=== PATIENT | male | born 1970 | race American Indian/Alaskan Native ===

== ENCOUNTER 2017-03-19 23:19 | Emergency (ER) | payer BC ==
[2017-03-20 00:09] LABS: Basophils % (Auto) 0.3 % (0.0-1.8); Eosinophils % (Auto) 0.4 % (0.0-4.3); Hematocrit 39.4 % (35.5-45.6); Hemoglobin 12.9 gm/dl (11.8-15.2); Mean Corpuscular HGB Conc 33 % (32-34); Mean Corpuscular Hemoglobin 30 pg (28-32); Mean Corpuscular Volume 92 fl (84-94); Platelet Count 213 K/mm3 (140-440); Red Cell Distribution Width 13.2 % (13.2-15.2); White Blood Count 14.9 K/mm3 (4.5-11.0)
[2017-03-20 00:14] LABS: Bilirubin,Urine NEG (Negative); Blood,Urine NEG (Negative); Ketones,Urine NEG (Negative); Leukocyte Esterase,Urine NEG (Negative); Mucus,Urine FEW /HPF; Nitrite,Urine NEG (Negative); Protein,Urine <15 mg/dL mg/dL (Negative); RBC,Urine < 1.0 /HPF (0.0-6.0); Urobilinogen,Urine < 2.0 mg/dL (<2.0); WBC,Urine < 1.0 /HPF (0.0-6.0)
[2017-03-20 00:32] LABS: Alanine Aminotransferase 26 units/L (7-56); Albumin 3.8 g/dL (3.9-5); Albumin/Globulin Ratio 1.2 %; Alkaline Phosphatase 66 units/L (35-129); Anion Gap 15 mmol/L; BUN/Creatinine Ratio 12.72; Blood Urea Nitrogen 14 mg/dL (9-20); Calcium 8.6 mg/dL (8.4-10.2); Carbon Dioxide 25 mmol/L (22-30); Glucose 110 mg/dL (75-100); Lipase 16 units/L (13-60); Sodium 137 mmol/L (137-145); Total Protein 7.1 g/dL (6.3-8.2)
[2017-03-20 01:55] VITALS: BP 119/71
[2017-03-20] MEDS ORDERED: LEVAQUIN PO ONE (04:40)
--- NOTE | 2017-03-20 04:40 | Emergency Department Report ---
ED N/V/D HPI - General Chief complaint: Nausea/Vomiting/Diarrhea Stated complaint: STOMACH PAIN Source: patient Mode of arrival: Ambulatory Limitations: No Limitations - History of Present Illness Initial comments: 46 yo male with no significant past medical history presents complaining of intermittent diarrhea 2 weeks. Patient states he has a moderate to severe lower abdominal cramping followed by a bowel movement with relief in pain. Patient having on average 10 bowel movements a day. Patient denies vomiting, fever, sick contacts, or recent travel. Patient using Imodium with some improvement. - Related Data Previous Rx's Medication Instructions Recorded Last Taken Type Ciprofloxacin HCl [Ciprofloxacin 500 mg PO Q12H #10 tab 03/20/17 Unknown Rx TAB] Allergies Allergy/AdvReac Type Severity Reaction Status Date / Time No Known Allergies Allergy Verified 03/19/17 23:39 ED Review of Systems ROS: Stated complaint: STOMACH PAIN Other details as noted in HPI Comment: All other systems reviewed and negative Other: Constitutional: No fevers chills Eyes: No eye pain visual changes ENT: No ear pain or throat pain Neck: Denies pain Respiratory: Denies cough wheezing shortness of breath Cardiovascular: Denies chest pain, palpitations, syncope GI: As per HPI : Denies dysuria Musculoskeletal: Denies back pain Skin: Denies rash, lesions, erythema Neurologic: Denies headache, numbness, weakness Psychiatric: Denies suicidal ideation, hallucinations ED Past Medical Hx - Past Medical History Previous Medical History?: No - Surgical History Past Surgical History?: No - Social History Smoking Status: Never Smoker Substance Use Type: None - Medications Home Medications: Home Medications Medication Instructions Recorded Confirmed Last Taken Type Ciprofloxacin HCl [Ciprofloxacin 500 mg PO Q12H #10 tab 03/20/17 Unknown Rx TAB] ED Physical Exam - General Limitations: No Limitations - Other Other exam information: General: No limitations, patient is alert in no acute distress Head exam: Atraumatic, normocephalic Eyes exam: Normal appearance ENT: Moist mucous membrane, normal oropharynx Neck exam: Normal inspection, full range of motion Respiratory exam: Clear to auscultation bilateral, no wheezes, rales, crackles Cardiovascular: Normal rate and rhythm, normal heart sounds Abdomen: Soft, nondistended, and nontender, with normal bowel sounds, no rebound, or guarding Extremity: Full range of motion normal inspection no deformity Back: Normal Inspection, full range of motion, no tenderness Neurologic: Alert, oriented x3, cranial nerves intact, no motor or sensory deficit Psychiatric: normal affect, normal mood Skin: Warm, dry, intact ED Course Vital Signs 03/19/17 03/20/17 23:34 01:54 Temperature 98.3 F Pulse Rate 95 H 74 Respiratory 18 16 Rate Blood Pressure 123/73 119/71 [Right] O2 Sat by Pulse 98 98 Oximetry - Reevaluation(s) Reevaluation #1: 03/20/17 04:38 Patient pain free in the ED states he only has pain prior to bowel movement ED Medical Decision Making - Lab Data Result diagrams: 03/19/17 23:57 03/19/17 23:57 Lab Results 03/19/17 03/19/17 03/19/17 Range/Units 23:45 23:57 23:57 WBC 14.9 H (4.5-11.0) K/mm3 RBC 4.30 (3.65-5.03) M/mm3 Hgb 12.9 (11.8-15.2) gm/dl Hct 39.4 (35.5-45.6) % MCV 92 (84-94) fl MCH 30 (28-32) pg MCHC 33 (32-34) % RDW 13.2 (13.2-15.2) % Plt Count 213 (140-440) K/mm3 Lymph % (Auto) 11.5 L (13.4-35.0) % [place] % (Auto) 10.5 H (0.0-7.3) % Eos % (Auto) 0.4 (0.0-4.3) % Baso % (Auto) 0.3 (0.0-1.8) % Lymph # 1.7 (1.2-5.4) K/mm3 [place] # 1.6 H (0.0-0.8) K/mm3 Eos # 0.1 (0.0-0.4) K/mm3 Baso # 0.0 (0.0-0.1) K/mm3 Seg Neutrophils % 77.3 H (40.0-70.0) % Seg Neutrophils # 11.5 H (1.8-7.7) K/mm3 Sodium 137 (137-145) mmol/L Potassium 4.0 (3.6-5.0) mmol/L Chloride 101.0 (98-107) mmol/L Carbon Dioxide 25 (22-30) mmol/L Anion Gap 15 mmol/L BUN 14 (9-20) mg/dL Creatinine 1.1 (0.8-1.5) mg/dL Estimated GFR > 60 ml/min BUN/Creatinine Ratio 12.72 % Glucose 110 H (75-100) mg/dL Calcium 8.6 (8.4-10.2) mg/dL Total Bilirubin 0.50 (0.1-1.2) mg/dL AST 21 (5-40) units/L ALT 26 (7-56) units/L Alkaline Phosphatase 66 (35-129) units/L Total Protein 7.1 (6.3-8.2) g/dL Albumin 3.8 L (3.9-5) g/dL Albumin/Globulin Ratio 1.2 % Lipase 16 (13-60) units/L Urine Color Yellow (Yellow) Urine Turbidity Clear (Clear) Urine pH 6.0 (5.0-7.0) Ur Specific [place] 1.018 (1.003-1.030) Urine Protein <15 mg/dl (Negative) mg/dL Urine Glucose (UA) Neg (Negative) mg/dL Urine Ketones Neg (Negative) mg/dL Urine Blood Neg (Negative) Urine Nitrite Neg (Negative) Urine Bilirubin Neg (Negative) Urine Urobilinogen < 2.0 (<2.0) mg/dL Ur Leukocyte Esterase Neg (Negative) Urine WBC (Auto) < 1.0 (0.0-6.0) /HPF Urine RBC (Auto) < 1.0 (0.0-6.0) /HPF Urine Mucus Few /HPF - Medical Decision Making Patient has had diarrhea for 2 weeks. Plan to treat with antibiotics and to continue Imodium as needed. Patient is nontender on exam and is tolerating by mouth intake therefore I suspect that diverticulitis and appendicitis are less likely. Outpatient follow-up with PMD and GI will be encouraged - Differential Diagnosis enteritis, appendicitis, diverticulitis Critical Care Time: No Critical care attestation.: If time is entered above; I have spent that time in minutes in the direct care of this critically ill patient, excluding procedure time. ED Disposition Clinical Impression: Enteritis Disposition: DISCHARGED TO HOME OR SELFCARE Is pt being admited?: No Does the pt Need Aspirin: No Condition: Stable Instructions: Acute Diarrhea (ED) Additional Instructions: Take the antibiotics as prescribed. Continue Imodium as needed. Follow-up with the doctor Prescriptions: Ciprofloxacin HCl [Ciprofloxacin TAB] 500 mg PO Q12H #10 tab Referrals: PRIMARY CARE, [Primary Care Provider] - 3-5 Days TEREZA GARCIA MD [Staff Physician] - 3-5 Days [facility] [Provider Group] - 3-5 Days Forms: Work/School Release Form(ED) Time of Disposition: 04:46
== END 2017-03-20 05:08 | disposition home or self-care (01) ==
LOC: ED 23:19
DX: K52.9 Noninfective gastroenteritis and colitis, unspecified (principal)
CPT/HCPCS: 36415; 80053; 81001; 83690; 85025; 99283